=== PATIENT | female | born 1945 | race Caucasian/White ===

== ENCOUNTER → 2019-04-01 | Outpatient (CLI) | payer MEDICARE, OTHER ==
[2019-04-01 09:56] LABS: EOS # 0.2 (0.04-0.40); EOS % 2.5 % (1.0-5.0); HEMATOCRIT 38.2 % (37.0-47.0); HEMOGLOBIN 12.9 g/dL (12.5-16.0); LYMPH# 2.6 (1.50-4.00); MEAN CELL VOLUME 88 fl (78-100); MEAN CORPUSCULAR HEMOGLOBIN 30 pg (27-31); MEAN CORPUSCULAR HGB CONC 34 g/dL (33-37); MEAN PLATELET VOLUME 10.3 fl (7.4-10.4); MONO # 0.7 (0.20-0.80); NEU # 4.4 (1.40-6.50); PLATELET COUNT 255 K/mm3 (130-400); RED BLOOD COUNT 4.33 M/mm3 (4.10-5.30); RED CELL DISTRIBUTION WIDTH 12.6 % (11.5-14.5); WHITE BLOOD COUNT 7.9 K/mm3 (4.8-10.8)
[2019-04-01 10:05] LABS: ALBUMIN 4.3 g/dL (3.4-4.8); POTASSIUM 4.7 mmol/L (3.5-5.1)
[2019-04-01 10:06] LABS: CALCIUM 9.6 mg/dL (8.3-10.5)
[2019-04-01 10:08] LABS: TOTAL PROTEIN 7.3 g/dL (6.2-8.1)
[2019-04-01 10:09] LABS: TOTAL BILIRUBIN 0.4 mg/dL (0.2-1.2)
[2019-04-01 10:14] LABS: MAGNESIUM 1.4 mg/dL (1.60-2.60)
[2019-04-01 11:04] LABS: ERYTHROCYTE SEDIMENTATION RATE 15 mm/hr (0-30)
[2019-04-01 13:11] LABS: URINE APPEARANCE CLEAR; URINE COLOR YELLOW
[2019-04-01 13:12] LABS: URINE BILIRUBIN NEGATIVE (NEGATIVE); URINE BLOOD NEGATIVE (NEGATIVE); URINE KETONE NEGATIVE (NEGATIVE); URINE LEUKOCYTE ESTERASE 1+ (NEGATIVE); URINE MUCUS PRESENT (NOT PRESENT); URINE NITRATE NEGATIVE (NEGATIVE); URINE PROTEIN(semi-quant) NEGATIVE (NEGATIVE); URINE UROBILINOGEN NORMAL (NORMAL)
== END ==
LOC: LAB 09:40
PROVIDERS: Internal Medicine
DX: Z12.11 Encounter for screening for malignant neoplasm of colon (principal); I25.10 Atherosclerotic heart disease of native coronary artery without angina pectoris; E11.9 Type 2 diabetes mellitus without complications; I10 Essential (primary) hypertension; K90.9 Intestinal malabsorption, unspecified; E78.2 Mixed hyperlipidemia

== ENCOUNTER → 2019-05-03 | Outpatient (CLI) | payer MEDICARE, OTHER | LOC: RAD 16:20 | DX: M19.032 Primary osteoarthritis, left wrist (principal); W19.XXXA Unspecified fall, initial encounter ==

== ENCOUNTER → 2019-07-27 | Outpatient (CLI) | payer MEDICARE, OTHER ==
[2019-07-27 16:52] LABS: ALBUMIN 4.7 g/dL (3.4-4.8); POTASSIUM 4.3 mmol/L (3.5-5.1)
[2019-07-27 16:54] LABS: TOTAL PROTEIN 7.5 g/dL (6.2-8.1)
[2019-07-27 16:56] LABS: TOTAL BILIRUBIN 0.5 mg/dL (0.2-1.2)
== END ==
LOC: LAB 16:18
PROVIDERS: Internal Medicine
DX: I25.10 Atherosclerotic heart disease of native coronary artery without angina pectoris (principal); E11.9 Type 2 diabetes mellitus without complications; K90.9 Intestinal malabsorption, unspecified; R20.2 Paresthesia of skin

== ENCOUNTER → 2019-11-25 | Outpatient (CLI) | payer MEDICARE, OTHER ==
[2019-11-25 12:29] LABS: EOS # 0.1 (0.04-0.40); EOS % 2.1 % (1.0-5.0); HEMATOCRIT 38.5 % (37.0-47.0); HEMOGLOBIN 12.5 g/dL (12.5-16.0); MEAN CELL VOLUME 90 fl (78-100); MEAN CORPUSCULAR HEMOGLOBIN 29 pg (27-31); MEAN CORPUSCULAR HGB CONC 33 g/dL (33-37); MEAN PLATELET VOLUME 10.3 fl (7.4-10.4); MONO # 0.5 (0.20-0.80); NEU # 3.6 (1.40-6.50); PLATELET COUNT 218 K/mm3 (130-400); RED BLOOD COUNT 4.26 M/mm3 (4.10-5.30); RED CELL DISTRIBUTION WIDTH 12.5 % (11.5-14.5); WHITE BLOOD COUNT 6.2 K/mm3 (4.8-10.8)
[2019-11-25 12:36] LABS: POTASSIUM 3.9 mmol/L (3.5-5.1)
[2019-11-25 12:37] LABS: ALBUMIN 4.2 g/dL (3.4-4.8)
[2019-11-25 12:38] LABS: CALCIUM 9.4 mg/dL (8.3-10.5)
[2019-11-25 12:41] LABS: TOTAL BILIRUBIN 0.5 mg/dL (0.2-1.2)
[2019-11-25 12:46] LABS: MAGNESIUM 1.66 mg/dL (1.60-2.60)
[2019-11-25 13:32] LABS: URINE APPEARANCE CLOUDY; URINE BILIRUBIN NEGATIVE (NEGATIVE); URINE BLOOD NEGATIVE (NEGATIVE); URINE COLOR YELLOW; URINE KETONE NEGATIVE (NEGATIVE); URINE LEUKOCYTE ESTERASE 2+ (NEGATIVE); URINE NITRATE NEGATIVE (NEGATIVE); URINE PROTEIN(semi-quant) NEGATIVE (NEGATIVE); URINE UROBILINOGEN NORMAL (NORMAL)
[2019-11-25 13:33] LABS: URINE MUCUS PRESENT (NOT PRESENT); URINE WBC 16-30 /hpf (0-3)
[2019-11-25 13:35] LABS: ERYTHROCYTE SEDIMENTATION RATE 5 mm/hr (0-30)
== END ==
LOC: LAB 12:13
PROVIDERS: Internal Medicine
DX: E11.9 Type 2 diabetes mellitus without complications (principal); I10 Essential (primary) hypertension; I25.10 Atherosclerotic heart disease of native coronary artery without angina pectoris; K90.9 Intestinal malabsorption, unspecified; E78.2 Mixed hyperlipidemia

== ENCOUNTER → 2019-11-30 | Outpatient (CLI) | payer MEDICARE, OTHER | LOC: MAMMO 13:00 | DX: Z12.31 Encounter for screening mammogram for malignant neoplasm of breast (principal) ==

== ENCOUNTER → 2019-11-30 | Outpatient (CLI) | payer MEDICARE, OTHER | LOC: MAMMO 13:07 | DX: Z13.820 Encounter for screening for osteoporosis (principal); M85.852 Other specified disorders of bone density and structure, left thigh; M85.851 Other specified disorders of bone density and structure, right thigh ==

== ENCOUNTER → 2020-02-03 | Outpatient (CLI) | payer MEDICARE, OTHER ==
[2020-02-03 11:26] LABS: EOS # 0.2 (0.04-0.40); EOS % 2.7 % (1.0-5.0); HEMATOCRIT 36.4 % (37.0-47.0); LYMPH# 2.4 (1.50-4.00); MEAN CELL VOLUME 90 fl (78-100); MEAN CORPUSCULAR HEMOGLOBIN 30 pg (27-31); MEAN CORPUSCULAR HGB CONC 33 g/dL (33-37); MEAN PLATELET VOLUME 9.8 fl (7.4-10.4); MONO # 0.6 (0.20-0.80); NEU # 4.1 (1.40-6.50); PLATELET COUNT 239 K/mm3 (130-400); RED BLOOD COUNT 4.03 M/mm3 (4.10-5.30); RED CELL DISTRIBUTION WIDTH 13.1 % (11.5-14.5); WHITE BLOOD COUNT 7.3 K/mm3 (4.8-10.8)
[2020-02-03 11:35] LABS: ALBUMIN 4.2 g/dL (3.4-4.8); POTASSIUM 4.6 mmol/L (3.5-5.1)
[2020-02-03 11:36] LABS: CALCIUM 9.3 mg/dL (8.3-10.5)
[2020-02-03 11:38] LABS: TOTAL PROTEIN 7.2 g/dL (6.2-8.1)
[2020-02-03 11:39] LABS: TOTAL BILIRUBIN 0.6 mg/dL (0.2-1.2)
== END ==
LOC: LAB 11:16
PROVIDERS: Internal Medicine
DX: I25.10 Atherosclerotic heart disease of native coronary artery without angina pectoris (principal); E11.9 Type 2 diabetes mellitus without complications; R07.89 Other chest pain

== ENCOUNTER → 2020-02-04 | Outpatient (CLI) | payer MEDICARE, OTHER | LOC: CARDREHAB 09:59 | DX: I25.10 Atherosclerotic heart disease of native coronary artery without angina pectoris (principal); E11.9 Type 2 diabetes mellitus without complications; I10 Essential (primary) hypertension | CPT/HCPCS: A9500 ==

== ENCOUNTER → 2020-10-23 | Outpatient (CLI) | payer MEDICARE, OTHER ==
[2020-10-23 16:16] LABS: EOS # 0.1 (0.04-0.40); EOS % 1.4 % (1.0-5.0); HEMATOCRIT 36.7 % (37.0-47.0); HEMOGLOBIN 12.2 g/dL (12.5-16.0); LYMPH# 2.7 (1.50-4.00); MEAN CELL VOLUME 90 fl (78-100); MEAN CORPUSCULAR HEMOGLOBIN 30 pg (27-31); MEAN CORPUSCULAR HGB CONC 33 g/dL (33-37); MEAN PLATELET VOLUME 10.7 fl (7.4-10.4); MONO # 0.6 (0.20-0.80); NEU # 3.6 (1.40-6.50); PLATELET COUNT 204 K/mm3 (130-400); RED BLOOD COUNT 4.07 M/mm3 (4.10-5.30); RED CELL DISTRIBUTION WIDTH 12.6 % (11.5-14.5)
[2020-10-23 16:22] LABS: ALBUMIN 4.2 g/dL (3.4-4.8); POTASSIUM 3.7 mmol/L (3.5-5.1)
[2020-10-23 16:23] LABS: CALCIUM 9.5 mg/dL (8.3-10.5)
[2020-10-23 16:24] LABS: TOTAL PROTEIN 7.1 g/dL (6.2-8.1)
[2020-10-23 16:26] LABS: TOTAL BILIRUBIN 0.3 mg/dL (0.2-1.2)
[2020-10-23 16:31] LABS: MAGNESIUM 1.69 mg/dL (1.60-2.60)
== END ==
LOC: LAB 15:54
PROVIDERS: Internal Medicine
DX: I10 Essential (primary) hypertension (principal); E11.9 Type 2 diabetes mellitus without complications

== ENCOUNTER → 2020-12-18 | Outpatient (CLI) | payer MEDICARE, OTHER | LOC: LAB 12:41 | DX: Z20.822 Contact with and (suspected) exposure to COVID-19 (principal) ==

== ENCOUNTER → 2021-01-10 | Outpatient (CLI) | payer MEDICARE, OTHER | LOC: RAD 07:50 | DX: M79.602 Pain in left arm (principal) ==

== ENCOUNTER → 2021-02-13 | Outpatient (CLI) | payer MEDICARE, OTHER | LOC: RAD 02-08 16:00 | DX: G31.9 Degenerative disease of nervous system, unspecified (principal) ==

== ENCOUNTER → 2021-04-26 | Outpatient (CLI) | payer MEDICARE, OTHER | LOC: RAD 14:17 | DX: M53.3 Sacrococcygeal disorders, not elsewhere classified (principal); W19.XXXA Unspecified fall, initial encounter ==

== ENCOUNTER → 2021-07-13 | Outpatient (CLI) | payer MEDICARE, OTHER ==
[2021-07-13 11:31] LABS: BASO # 0.02 K/mm3 (0.02-0.10); EOS # 0.02 K/mm3 (0.04-0.40); EOS % 0.4 % (1.0-5.0); HEMATOCRIT 33.9 % (37.0-47.0); HEMOGLOBIN 11.6 g/dL (12.5-16.0); LYMPH# 1.95 K/mm3 (1.50-4.00); MEAN CELL VOLUME 87 fl (78-100); MEAN CORPUSCULAR HEMOGLOBIN 30 pg (27-31); MEAN CORPUSCULAR HGB CONC 34 g/dL (33-37); MEAN PLATELET VOLUME 11.1 fl (7.4-10.4); NEU # 1.99 K/mm3 (1.40-6.50); PLATELET COUNT 269 K/mm3 (130-400); RED CELL DISTRIBUTION WIDTH 12.4 % (11.5-14.5); WHITE BLOOD COUNT 4.6 K/mm3 (4.8-10.8)
[2021-07-13 11:32] LABS: ALBUMIN 3.5 g/dL (3.4-4.8); POTASSIUM 4.7 mmol/L (3.5-5.1)
[2021-07-13 11:34] LABS: CALCIUM 8.9 mg/dL (8.3-10.5)
[2021-07-13 11:35] LABS: TOTAL PROTEIN 6.6 g/dL (6.2-8.1)
[2021-07-13 11:37] LABS: TOTAL BILIRUBIN 0.4 mg/dL (0.2-1.2)
== END ==
LOC: LAB 10:50
PROVIDERS: Nurse Practitioner
DX: S61.401A Unspecified open wound of right hand, initial encounter (principal); X58.XXXA Exposure to other specified factors, initial encounter

== ENCOUNTER 2021-08-23 13:00 | Outpatient (RCR) | payer MEDICARE, OTHER | END 2021-08-27 | disposition home or self-care (01) | LOC: OT | DX: M79.641 Pain in right hand (principal) ==

== ENCOUNTER 2021-08-28 10:15 | Outpatient (RCR) | payer MEDICARE, OTHER | END 2021-09-27 14:15 | disposition home or self-care (01) | LOC: OT 10:15 | DX: M79.641 Pain in right hand (principal) ==

== ENCOUNTER → 2021-10-06 | Outpatient (CLI) | payer MEDICARE, OTHER ==
[~2021-10-06] MED LIST: CARVEDILOL6.25 MG PO; CEFDINIR300 MG PO; DONEPEZIL HCL10 MG PO; ESCITALOPRAM10 MG PO; ESCITALOPRAM5 MG PO; ESTRADIOL0.5 M1 PO; GLIMEPIRIDE2 M1 PO; GLIMEPIRIDE4 MG PO; LEXAPRO5 MG PO; MEMANTINE HCL10 MG PO; METFORMIN ER500 MG PO; OLMESARTAN MEDO20 MG PO; PANTOPRAZOLE SO40 MG PO; REPAGLINIDE2 MG PO; SIMVASTATIN40 M1 PO; ZOFRAN ODT4 MG PO
[2021-10-06 10:18] LABS: BASO # 0.01 K/mm3 (0.02-0.10); HEMATOCRIT 31.4 % (37.0-47.0); HEMOGLOBIN 10.5 g/dL (12.5-16.0); LYMPH# 0.61 K/mm3 (1.50-4.00); MEAN CELL VOLUME 90 fl (78-100); MEAN CORPUSCULAR HEMOGLOBIN 30 pg (27-31); MEAN CORPUSCULAR HGB CONC 33 g/dL (33-37); MEAN PLATELET VOLUME 11.1 fl (7.4-10.4); MONO # 0.61 K/mm3 (0.20-0.80); NEU # 13.01 K/mm3 (1.40-6.50); PLATELET COUNT 171 K/mm3 (130-400); RED BLOOD COUNT 3.49 M/mm3 (4.10-5.30); WHITE BLOOD COUNT 14.3 K/mm3 (4.8-10.8)
[2021-10-06 10:30] LABS: POTASSIUM 3.7 mmol/L (3.5-5.1)
[2021-10-06 10:31] LABS: ALBUMIN 3.8 g/dL (3.4-4.8)
[2021-10-06 10:32] LABS: CALCIUM 9.2 mg/dL (8.3-10.5)
[2021-10-06 10:33] LABS: TOTAL PROTEIN 6.6 g/dL (6.2-8.1)
[2021-10-06 10:35] LABS: TOTAL BILIRUBIN 0.8 mg/dL (0.2-1.2)
[2021-10-06 10:40] LABS: MAGNESIUM 1.34 mg/dL (1.60-2.60)
[2021-10-12 01:34] LABS: VITAMIN B1 125 nmol/L (70-180)
== END ==
LOC: LAB 08:49
PROVIDERS: Internal Medicine
DX: I10 Essential (primary) hypertension (principal); I25.10 Atherosclerotic heart disease of native coronary artery without angina pectoris; E11.9 Type 2 diabetes mellitus without complications; K90.9 Intestinal malabsorption, unspecified

== ENCOUNTER 2021-10-07 08:21 | Observation (INO) | payer MEDICARE, OTHER ==
[~2021-10-07] VITALS: Ht 152.4 cm; Wt 51.8 kg
[2021-10-07] MEDS ORDERED: DONEPEZIL HCL10 MG PO (08:37)
[2021-10-07] MEDS ORDERED: ESTRADIOL0.5 M1 PO (08:37)
[2021-10-07] MEDS ORDERED: CARVEDILOL6.25 MG PO (08:37)
[2021-10-07] MEDS ORDERED: ESCITALOPRAM5 MG PO (08:37)
[2021-10-07] MEDS ORDERED: METFORMIN ER500 MG PO (08:38)
[2021-10-07] MEDS ORDERED: MEMANTINE HCL10 MG PO (08:38)
[2021-10-07] MEDS ORDERED: GLIMEPIRIDE2 M1 PO (08:38)
[2021-10-07] MEDS ORDERED: OLMESARTAN MEDO20 MG PO (08:39)
[2021-10-07] MEDS ORDERED: REPAGLINIDE2 MG PO (08:39)
[2021-10-07] MEDS ORDERED: SIMVASTATIN40 M1 PO (08:40)
[2021-10-07] MEDS ORDERED: GLIMEPIRIDE4 MG PO (08:40)
[2021-10-07 09:55] LABS: HEMATOCRIT 31.6 % (37.0-47.0); HEMOGLOBIN 10.5 g/dL (12.5-16.0); MEAN CELL VOLUME 90 fl (78-100); MEAN CORPUSCULAR HEMOGLOBIN 30 pg (27-31); MEAN CORPUSCULAR HGB CONC 33 g/dL (33-37); MEAN PLATELET VOLUME 11.6 fl (7.4-10.4); PLATELET COUNT 135 K/mm3 (130-400); RED BLOOD COUNT 3.51 M/mm3 (4.10-5.30); WHITE BLOOD COUNT 9.4 K/mm3 (4.8-10.8)
[2021-10-07 10:02] LABS: URINE APPEARANCE HAZY; URINE COLOR YELLOW
[2021-10-07 10:03] LABS: URINE BILIRUBIN NEGATIVE (NEGATIVE); URINE BLOOD 50 ery/uL (NEGATIVE); URINE GLUCOSE NEGATIVE (NEGATIVE); URINE KETONE NEGATIVE (NEGATIVE); URINE LEUKOCYTE ESTERASE TRACE (NEGATIVE); URINE MUCUS PRESENT (NOT PRESENT); URINE NITRATE NEGATIVE (NEGATIVE); URINE PROTEIN(semi-quant) 1+ (NEGATIVE); URINE UROBILINOGEN NORMAL (NORMAL)
[2021-10-07 10:04] LABS: ALBUMIN 3.7 g/dL (3.4-4.8); POTASSIUM 3.6 mmol/L (3.5-5.1)
[2021-10-07 10:05] LABS: CALCIUM 8.9 mg/dL (8.3-10.5)
[2021-10-07 10:07] LABS: TOTAL PROTEIN 6.6 g/dL (6.2-8.1)
[2021-10-07 10:08] LABS: TOTAL BILIRUBIN 0.7 mg/dL (0.2-1.2)
[2021-10-07 10:36] LABS: BAND 8 % (0-10); LYMPHOCYTE 6 % (20-51); MONOCYTE 7 % (3-10); NEUTROPHILS 79 % (42-75)
[2021-10-07 19:05] VITALS: BP 126/64
[2021-10-07 23:11] VITALS: BP 127/65
[2021-10-08 06:19] VITALS: BP 156/74
[2021-10-08 09:33] VITALS: BP 132/65
[2021-10-08 13:49] LABS: BASO # 0.04 K/mm3 (0.02-0.10); HEMATOCRIT 29.7 % (37.0-47.0); HEMOGLOBIN 10.1 g/dL (12.5-16.0); LYMPH# 0.77 K/mm3 (1.50-4.00); MEAN CELL VOLUME 88 fl (78-100); MEAN CORPUSCULAR HEMOGLOBIN 30 pg (27-31); MEAN CORPUSCULAR HGB CONC 34 g/dL (33-37); MEAN PLATELET VOLUME 11.1 fl (7.4-10.4); MONO # 0.88 K/mm3 (0.20-0.80); NEU # 9.58 K/mm3 (1.40-6.50); PLATELET COUNT 118 K/mm3 (130-400); RED BLOOD COUNT 3.37 M/mm3 (4.10-5.30); RED CELL DISTRIBUTION WIDTH 12.9 % (11.5-14.5); WHITE BLOOD COUNT 11.3 K/mm3 (4.8-10.8)
[2021-10-08 14:02] LABS: POTASSIUM 3.5 mmol/L (3.5-5.1)
[2021-10-08 14:03] LABS: CALCIUM 8.8 mg/dL (8.3-10.5)
[2021-10-08 14:36] VITALS: BP 180/68
[2021-10-08 17:11] LABS: URINE APPEARANCE HAZY; URINE COLOR YELLOW
[2021-10-08 17:16] LABS: URINE BILIRUBIN NEGATIVE (NEGATIVE); URINE BLOOD 250 ery/uL (NEGATIVE); URINE KETONE 2+ (NEGATIVE); URINE NITRATE POSITIVE (NEGATIVE); URINE PROTEIN(semi-quant) 2+ (NEGATIVE); URINE UROBILINOGEN 1 mg/dL (NORMAL)
[2021-10-08 17:17] LABS: URINE LEUKOCYTE ESTERASE 2+ (NEGATIVE); URINE MUCUS PRESENT (NOT PRESENT); URINE WBC >50 /hpf (0-3)
[2021-10-08 17:59] VITALS: BP 110/55
[2021-10-08 22:19] VITALS: BP 145/61
[2021-10-09 05:56] VITALS: BP 123/57
[2021-10-09 07:15] LABS: BASO # 0.02 K/mm3 (0.02-0.10); EOS # 0.01 K/mm3 (0.04-0.40); EOS % 0.1 % (1.0-5.0); HEMATOCRIT 28.1 % (37.0-47.0); HEMOGLOBIN 9.6 g/dL (12.5-16.0); LYMPH# 1.46 K/mm3 (1.50-4.00); MEAN CELL VOLUME 88 fl (78-100); MEAN CORPUSCULAR HEMOGLOBIN 30 pg (27-31); MEAN CORPUSCULAR HGB CONC 34 g/dL (33-37); MEAN PLATELET VOLUME 11.6 fl (7.4-10.4); NEU # 8.72 K/mm3 (1.40-6.50); PLATELET COUNT 133 K/mm3 (130-400); RED BLOOD COUNT 3.18 M/mm3 (4.10-5.30); RED CELL DISTRIBUTION WIDTH 12.8 % (11.5-14.5); WHITE BLOOD COUNT 11.5 K/mm3 (4.8-10.8)
[2021-10-09 07:45] LABS: POTASSIUM 3.4 mmol/L (3.5-5.1)
[2021-10-09 07:46] LABS: CALCIUM 8.9 mg/dL (8.3-10.5)
[2021-10-09 10:07] VITALS: BP 120/58
[2021-10-09 13:59] VITALS: BP 120/64
[2021-10-09 17:48] VITALS: BP 125/62
[2021-10-09 21:58] VITALS: BP 129/52
[2021-10-10 06:09] VITALS: BP 152/63
[2021-10-10 07:07] LABS: BASO # 0.02 K/mm3 (0.02-0.10); EOS # 0.03 K/mm3 (0.04-0.40); EOS % 0.4 % (1.0-5.0); HEMATOCRIT 29.2 % (37.0-47.0); HEMOGLOBIN 9.6 g/dL (12.5-16.0); LYMPH# 1.85 K/mm3 (1.50-4.00); MEAN CELL VOLUME 91 fl (78-100); MEAN CORPUSCULAR HEMOGLOBIN 30 pg (27-31); MEAN CORPUSCULAR HGB CONC 33 g/dL (33-37); MEAN PLATELET VOLUME 11.1 fl (7.4-10.4); MONO # 0.76 K/mm3 (0.20-0.80); NEU # 4.17 K/mm3 (1.40-6.50); PLATELET COUNT 171 K/mm3 (130-400); RED BLOOD COUNT 3.22 M/mm3 (4.10-5.30); WHITE BLOOD COUNT 6.9 K/mm3 (4.8-10.8)
[2021-10-10 07:11] LABS: POTASSIUM 3.8 mmol/L (3.5-5.1)
[2021-10-10 07:12] LABS: CALCIUM 9.5 mg/dL (8.3-10.5)
[2021-10-10 10:05] VITALS: BP 130/62
[2021-10-10] MEDS ORDERED: PANTOPRAZOLE SO40 MG PO (11:26)
[2021-10-10] MEDS ORDERED: ESCITALOPRAM10 MG PO (11:26)
[2021-10-10] MEDS ORDERED: CEFDINIR300 MG PO (11:30)
== END 2021-10-10 13:00 | disposition home or self-care (01) ==
LOC: ED 08:21 → MED/SURG 18:30
PROVIDERS: Nurse Practitioner; Physician Assistant; ADMIT Family Medicine
DX: N39.0 Urinary tract infection, site not specified (principal); R41.82 Altered mental status, unspecified; E86.9 Volume depletion, unspecified; R50.9 Fever, unspecified; K21.9 Gastro-esophageal reflux disease without esophagitis; F03.90 Unspecified dementia, unspecified severity, without behavioral disturbance, psychotic disturbance, mood disturbance, and anxiety; F32.A Depression, unspecified; Z79.899 Other long term (current) drug therapy
CPT/HCPCS: G0378; J0696; J7030

== ENCOUNTER → 2021-10-23 | Outpatient (CLI) | payer MEDICARE, OTHER ==
[2021-10-23 14:44] LABS: URINE APPEARANCE CLEAR; URINE BILIRUBIN NEGATIVE (NEGATIVE); URINE BLOOD 50 ery/uL (NEGATIVE); URINE COLOR YELLOW; URINE KETONE NEGATIVE (NEGATIVE); URINE LEUKOCYTE ESTERASE 1+ (NEGATIVE); URINE NITRATE NEGATIVE (NEGATIVE); URINE PROTEIN(semi-quant) TRACE (NEGATIVE); URINE UROBILINOGEN NORMAL (NORMAL)
[2021-10-23 14:45] LABS: URINE MUCUS PRESENT (NOT PRESENT)
== END ==
LOC: LAB 10:40
PROVIDERS: Internal Medicine
DX: R41.0 Disorientation, unspecified (principal)

== ENCOUNTER → 2021-10-26 | Outpatient (CLI) | payer MEDICARE, OTHER ==
[2021-10-26 15:25] LABS: URINE APPEARANCE HAZY; URINE BILIRUBIN NEGATIVE (NEGATIVE); URINE BLOOD TRACE (NEGATIVE); URINE COLOR YELLOW; URINE KETONE NEGATIVE (NEGATIVE); URINE LEUKOCYTE ESTERASE 1+ (NEGATIVE); URINE NITRATE NEGATIVE (NEGATIVE); URINE PROTEIN(semi-quant) NEGATIVE (NEGATIVE); URINE UROBILINOGEN NORMAL (NORMAL)
== END ==
LOC: LAB 11:29
PROVIDERS: Internal Medicine
DX: E11.9 Type 2 diabetes mellitus without complications (principal); N39.0 Urinary tract infection, site not specified; I95.1 Orthostatic hypotension; I10 Essential (primary) hypertension; R41.3 Other amnesia; L03.113 Cellulitis of right upper limb; M79.641 Pain in right hand

== ENCOUNTER → 2021-11-02 | Outpatient (CLI) | payer MEDICARE, OTHER ==
[~2021-11-02] VITALS: Ht 152.4 cm; Wt 51.8 kg
[2021-11-02 15:01] VITALS: BP 132/93
[2021-11-02 17:03] LABS: URINE APPEARANCE HAZY; URINE COLOR YELLOW
[2021-11-02 17:04] LABS: URINE BILIRUBIN NEGATIVE (NEGATIVE); URINE BLOOD NEGATIVE (NEGATIVE); URINE GLUCOSE NEGATIVE (NEGATIVE); URINE KETONE NEGATIVE (NEGATIVE); URINE LEUKOCYTE ESTERASE TRACE (NEGATIVE); URINE MUCUS PRESENT (NOT PRESENT); URINE NITRATE NEGATIVE (NEGATIVE); URINE PROTEIN(semi-quant) TRACE (NEGATIVE); URINE UROBILINOGEN NORMAL (NORMAL)
== END ==
LOC: LAB 14:50
PROVIDERS: Internal Medicine
DX: N39.0 Urinary tract infection, site not specified (principal)

== ENCOUNTER 2021-11-05 21:06 | Emergency (ER) | payer MEDICARE, OTHER ==
[~2021-11-05 21:06] MED LIST changes: -LEXAPRO5 MG PO; -ZOFRAN ODT4 MG PO
[2021-11-05 22:08] LABS: BASO # 0.02 K/mm3 (0.02-0.10); EOS # 0.08 K/mm3 (0.04-0.40); EOS % 1.2 % (1.0-5.0); HEMATOCRIT 31.4 % (37.0-47.0); HEMOGLOBIN 10.9 g/dL (12.5-16.0); LYMPH# 2.67 K/mm3 (1.50-4.00); MEAN CELL VOLUME 85 fl (78-100); MEAN CORPUSCULAR HEMOGLOBIN 29 pg (27-31); MEAN CORPUSCULAR HGB CONC 35 g/dL (33-37); MEAN PLATELET VOLUME 10.8 fl (7.4-10.4); MONO # 0.69 K/mm3 (0.20-0.80); NEU # 3.09 K/mm3 (1.40-6.50); PLATELET COUNT 161 K/mm3 (130-400); RED BLOOD COUNT 3.71 M/mm3 (4.10-5.30); RED CELL DISTRIBUTION WIDTH 13.1 % (11.5-14.5); WHITE BLOOD COUNT 6.6 K/mm3 (4.8-10.8)
[2021-11-05 22:17] LABS: POTASSIUM 4.3 mmol/L (3.5-5.1)
[2021-11-05 22:18] LABS: CALCIUM 9.8 mg/dL (8.3-10.5)
[2021-11-05 23:24] LABS: URINE APPEARANCE CLEAR; URINE BILIRUBIN NEGATIVE (NEGATIVE); URINE BLOOD NEGATIVE (NEGATIVE); URINE COLOR YELLOW; URINE GLUCOSE NEGATIVE (NEGATIVE); URINE KETONE 1+ (NEGATIVE); URINE NITRATE NEGATIVE (NEGATIVE); URINE PROTEIN(semi-quant) TRACE (NEGATIVE); URINE UROBILINOGEN NORMAL (NORMAL)
[2021-11-05 23:25] LABS: URINE LEUKOCYTE ESTERASE TRACE (NEGATIVE); URINE WBC 0-1 /hpf (0-3)
[2021-11-05 23:26] LABS: URINE MUCUS PRESENT (NOT PRESENT)
[2021-11-05] MEDS ORDERED: LEXAPRO5 MG PO (23:44)
[2021-11-06] MEDS ORDERED: ZOFRAN ODT4 MG PO (01:01)
[2021-11-06 01:30] VITALS: BP 115/95
== END 2021-11-06 01:30 | disposition home or self-care (01) ==
LOC: ED 21:06
PROVIDERS: Nurse Practitioner
DX: N17.9 Acute kidney failure, unspecified (principal); E86.0 Dehydration; E87.8 Other disorders of electrolyte and fluid balance, not elsewhere classified; Z20.822 Contact with and (suspected) exposure to COVID-19; Z28.311 Partially vaccinated for COVID-19
CPT/HCPCS: J2405; J7040

== ENCOUNTER → 2021-11-09 | Outpatient (CLI) | payer MEDICARE, OTHER ==
[~2021-11-09] MED LIST changes: +LEXAPRO5 MG PO; +ZOFRAN ODT4 MG PO
[2021-11-09 08:57] LABS: ALBUMIN 3.9 g/dL (3.4-4.8); POTASSIUM 4.7 mmol/L (3.5-5.1)
[2021-11-09 08:58] LABS: CALCIUM 8.8 mg/dL (8.3-10.5)
[2021-11-09 09:00] LABS: TOTAL PROTEIN 6.6 g/dL (6.2-8.1)
[2021-11-09 09:02] LABS: TOTAL BILIRUBIN 0.4 mg/dL (0.2-1.2)
[2021-11-09 09:06] LABS: MAGNESIUM 1.45 mg/dL (1.60-2.60)
== END ==
LOC: LAB 08:24
PROVIDERS: Internal Medicine
DX: E11.9 Type 2 diabetes mellitus without complications (principal); I95.1 Orthostatic hypotension; I10 Essential (primary) hypertension; L03.113 Cellulitis of right upper limb; M79.641 Pain in right hand; R41.3 Other amnesia

== ENCOUNTER → 2022-03-21 | Outpatient (CLI) | payer MEDICARE, OTHER ==
[2022-03-21 15:36] LABS: BASO # 0.02 K/mm3 (0.02-0.10); EOS # 0.07 K/mm3 (0.04-0.40); EOS % 1.1 % (1.0-5.0); HEMATOCRIT 31.9 % (37.0-47.0); HEMOGLOBIN 10.3 g/dL (12.5-16.0); LYMPH# 1.78 K/mm3 (1.50-4.00); MEAN CELL VOLUME 94 fl (78-100); MEAN CORPUSCULAR HEMOGLOBIN 30 pg (27-31); MEAN CORPUSCULAR HGB CONC 32 g/dL (33-37); MEAN PLATELET VOLUME 11.2 fl (7.4-10.4); MONO # 0.56 K/mm3 (0.20-0.80); NEU # 3.66 K/mm3 (1.40-6.50); PLATELET COUNT 146 K/mm3 (130-400); RED BLOOD COUNT 3.39 M/mm3 (4.10-5.30); RED CELL DISTRIBUTION WIDTH 12.8 % (11.5-14.5); WHITE BLOOD COUNT 6.1 K/mm3 (4.8-10.8)
[2022-03-21 15:45] LABS: POTASSIUM 4.5 mmol/L (3.5-5.1)
[2022-03-21 15:46] LABS: ALBUMIN 4.1 g/dL (3.4-4.8)
[2022-03-21 15:47] LABS: CALCIUM 9.5 mg/dL (8.3-10.5)
[2022-03-21 15:48] LABS: TOTAL PROTEIN 6.9 g/dL (6.2-8.1)
[2022-03-21 15:50] LABS: TOTAL BILIRUBIN 0.4 mg/dL (0.2-1.2)
[2022-03-21 16:40] LABS: MAGNESIUM 1.78 mg/dL (1.60-2.60)
== END ==
LOC: LAB 15:11
PROVIDERS: Internal Medicine
DX: I25.10 Atherosclerotic heart disease of native coronary artery without angina pectoris (principal); N17.9 Acute kidney failure, unspecified; I95.1 Orthostatic hypotension; I10 Essential (primary) hypertension; F03.90 Unspecified dementia, unspecified severity, without behavioral disturbance, psychotic disturbance, mood disturbance, and anxiety; E11.9 Type 2 diabetes mellitus without complications; K90.9 Intestinal malabsorption, unspecified; E53.8 Deficiency of other specified B group vitamins

== ENCOUNTER → 2022-07-25 | Outpatient (CLI) | payer MEDICARE, OTHER ==
[2022-07-25 10:18] LABS: URINE APPEARANCE CLOUDY; URINE BILIRUBIN NEGATIVE (NEGATIVE); URINE COLOR YELLOW; URINE GLUCOSE 50 mg/dL (NEGATIVE); URINE KETONE NEGATIVE (NEGATIVE); URINE PROTEIN(semi-quant) TRACE (NEGATIVE); URINE UROBILINOGEN NORMAL (NORMAL)
[2022-07-25 10:19] LABS: URINE BLOOD TRACE (NEGATIVE); URINE LEUKOCYTE ESTERASE 2+ (NEGATIVE); URINE NITRATE NEGATIVE (NEGATIVE); URINE WBC 16-30 /hpf (0-3)
== END ==
LOC: LAB 08:34
PROVIDERS: Internal Medicine
DX: R41.0 Disorientation, unspecified (principal)

== ENCOUNTER → 2022-09-12 | Outpatient (CLI) | payer MEDICARE, OTHER ==
[2022-09-12 12:57] LABS: BASO # 0.02 K/mm3 (0.02-0.10); EOS # 0.07 K/mm3 (0.04-0.40); EOS % 1.3 % (1.0-5.0); HEMATOCRIT 33.1 % (37.0-47.0); HEMOGLOBIN 11.1 g/dL (12.5-16.0); LYMPH# 1.82 K/mm3 (1.50-4.00); MEAN CELL VOLUME 92 fl (78-100); MEAN CORPUSCULAR HEMOGLOBIN 31 pg (27-31); MEAN CORPUSCULAR HGB CONC 34 g/dL (33-37); MEAN PLATELET VOLUME 11.5 fl (7.4-10.4); MONO # 0.41 K/mm3 (0.20-0.80); NEU # 3.11 K/mm3 (1.40-6.50); PLATELET COUNT 149 K/mm3 (130-400); RED CELL DISTRIBUTION WIDTH 12.8 % (11.5-14.5); WHITE BLOOD COUNT 5.4 K/mm3 (4.8-10.8)
[2022-09-12 13:03] LABS: POTASSIUM 4.5 mmol/L (3.5-5.1)
[2022-09-12 13:04] LABS: ALBUMIN 3.9 g/dL (3.4-4.8)
[2022-09-12 13:06] LABS: TOTAL PROTEIN 6.7 g/dL (6.2-8.1)
[2022-09-12 13:08] LABS: TOTAL BILIRUBIN 0.5 mg/dL (0.2-1.2)
[2022-09-12 13:13] LABS: MAGNESIUM 1.55 mg/dL (1.60-2.60)
== END ==
LOC: LAB 12:38
PROVIDERS: Internal Medicine
DX: E11.9 Type 2 diabetes mellitus without complications (principal); I95.1 Orthostatic hypotension; I10 Essential (primary) hypertension; N17.9 Acute kidney failure, unspecified; F03.90 Unspecified dementia, unspecified severity, without behavioral disturbance, psychotic disturbance, mood disturbance, and anxiety; I25.10 Atherosclerotic heart disease of native coronary artery without angina pectoris; K90.9 Intestinal malabsorption, unspecified; E53.8 Deficiency of other specified B group vitamins; J30.2 Other seasonal allergic rhinitis